=== PATIENT | female | born 1985 | race Caucasian/White ===

== ENCOUNTER 2019-11-05 14:42 | Emergency (ER) | payer OTHER, SELFPAY ==
[2019-11-05 14:55] VITALS: BP 134/79; PULSE 83; RESP 18; TEMP 36.9; O2SAT 100
--- NOTE | 2019-11-05 14:56 | ED.FEMALEGU ---
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 Patient states that she took 2 [id number] tests 2 weeks ago, and both tests were negative. Patient states that she also might have a yeast infection . Patient states that 2 months ago she was diagnosed with BV and given Diflucan for possible yeast infection. Patient states that she did take the Diflucan however she did not complete her medication for BV. Patient states that she is homeless and left her medication at another household. Patient states that she is also been tested for STDs recently and they were negative. Patient states that she has not had any new partners since that testing. Patient states that test me for all however, patient has no current risk factors of recent STD check was negative and she has not been with new/multiple partners. Patient states that this time she does have some scant discharge that may be a little foul odor. Denies any urinary symptoms such as frequency, urgency, burning. States that she does have some pelvic pain with intercourse. No other acute complaints. Patient seems to be anxious or under the influence of drugs or alcohol. Patient aware of the plan of care. Related Data Allergies Allergy/AdvReac Type Severity Reaction Status Date / Time No Known Allergies Allergy Verified 11/05/19 15:29 Review of Systems Review of Systems: Narrative: CONSTITUTIONAL: Denies fever, chills, or sweats. EYES: Denies visual changes, redness, or discharge. ENT: Denies rhinorrhea, congestion, sore throat, or otalgia. CARDIOVASCULAR: Denies chest pain, palpitations, or edema. RESPIRATORY: Denies cough or dyspnea. GASTROINTESTINAL: Denies abdominal pain, nausea, vomiting, or diarrhea. GENITOURINARY: Denies dysuria or hematuria. Reports of some scant white vaginal discharge at times . SKIN: Denies rash or itching. MUSCULOSKELETAL: Denies back pain, joint pain, or myalgia. NEUROLOGIC: Denies headache, numbness, or weakness. All other systems reviewed are negative, except as documented in HPI. PMFSH Comments At the time of my signature, I reviewed and agree with the nursing past medical, surgical, social, and family history. There is no relevant family history pertinent to the patient complaint. Exam Narrative: Exam Narrative: GENERAL: This is a well-nourished, well-developed patient, in no apparent distress. HEAD: normocephalic, atraumatic. EYES: PERRL. Sclera clear/white. Vision is grossly intact. EARS: External ears normal NOSE: External nose normal with no obvious nasal discharge THROAT: Mucous membranes moist, NECK: Neck supple CARDIOVASCULAR: Regular rate and rhythm without murmurs, gallops, or rubs. RESPIRATORY: Clear to auscultation. Breath sounds equal bilaterally. No wheezes, rales, or rhonchi. : Normal clear vaginal discharge near the cervix without odor. No yellow to roa discharge noted. No pain with pelvic speculum exam. Digital exam not completed. SKIN: warm, intact with no suspicious lesions or rash, good texture and turgor. NEURO: awake, alert, and oriented to person, place and time. There were no obvious focal neurologic abnormalities. EXTREMITIES: No clubbing, cyanosis, or edema. Course Vital Signs Vital signs: Vital Signs Temperature 98.5 F 11/05/19 14:55 Pulse Rate 83 11/05/19 14:55 Respiratory Rate 18 11/05/19 14:55 Blood Pressure 134/79 11/05/19 14:55 Pulse Oximetry 100 11/05/19 14:55 Temperature 98.5 F 11/05/19 14:55 Pulse Rate 83 11/05/19 14:55 Respiratory Rate 18 11/05/19 14:55 Blood Pressure 134/79 11/05/19 14:55 Pulse Oximetry 100 11/05/19 14:55 Reviewed MDM - Female Genitourinary MDM Narrative Med
== END 2019-11-05 15:25 | disposition home or self-care (01) ==
PROVIDERS: Emergency Provider Nurse Practitioner Family
DX: N89.8 Other specified noninflammatory disorders of vagina (principal); N80.9 Endometriosis, unspecified
CPT/HCPCS: 99214; G0463